=== PATIENT | male | born 1985 | race Caucasian/White ===

== ENCOUNTER 2018-08-21 13:44 | Emergency (ER) | payer OTHER ==
[~2018-08-21] VITALS: Wt 86.0 kg
[2018-08-21] MEDS ORDERED: SOD CHLORIDE 0.9% 1,000 ML IV STA (13:51)
[2018-08-21] MEDS: LORAZEPAM 2 MG INJ IV ONE ×2 (14:00→14:24)
[2018-08-21] MEDS: ONDANSETRON 4 MG INJ IV STA ×2 (14:24→15:53)
[2018-08-21 15:52] VITALS: BP 110/68; PULSE 58; RESP 20
--- NOTE | 2018-08-21 19:28 | ERD ---
ER Documentation Chief Complaint Chief Complaint C/O GEN WEAKNESS WITH NAUSEA THIS MORNING S/P SPINAL CONTRAST YESTERDAY HPI This is a 32-year-old male presents to the emergency department complaining of a sudden onset of dizziness and feeling as though the room was spinning around him that occurred this morning upon awakening. The patient had received an outpatient CT scan with IV contrast of his neck. After receiving the contrast he stated he felt slightly nauseous. He has received contrast in the past with no adverse reactions. The CT scan was ordered by his neurosurgeon as he is currently awaiting spinal surgery for herniated disc. The patient denies any numbness or tingling of his upper or lower extreme days. He has no chest pain. ROS All systems reviewed and are negative except as per history of present illness. Medications Home Meds No Active Prescriptions or Reported Meds Allergies Allergies: Uncoded Allergies: NOVALGIN (PAIN MEDS) (Allergy, Unknown, 08/21/18) PMhx/Soc Medical and Surgical Hx: pt denies Medical Hx, pt denies Surgical Hx Hx Alcohol Use: Yes Hx Substance Use: No Hx Tobacco Use: No Smoking Status: Never smoker Physical Exam Vitals Vital Signs Date Temp Pulse Resp B/P (MAP) Pulse Ox O2 O2 Flow FiO2 Time Delivery Rate 08/21/18 58 20 110/68 99 Room Air 15:52 (82) 08/21/18 98.1 46 20 113/74 99 14:15 (87) Physical Exam Constitutional:Well-developed. Well-nourished. HEENT:Normocephalic. Atraumatic.Pupils were equal round reactive to light. Moist mucous membranes.No tonsillar exudates. Neck: No nuchal rigidity. No lymphadenopathy. No posterior cervical spine tenderness or step-offs. Respiratory: Not using accessory muscles of respiration.Lungs were clear to auscultation bilaterally. No rhonchi. No rales. No wheezing. Cardiovascular: Regular rate regular rhythm.No murmurs. No rubs were appreci ated.S1, S2 normal. Distal pulses are palpable 2+ bilaterally. GI: Abdomen was soft. Nontender. Non Distended. No pulsatile abdominal masses or bruits. No rebound. No guarding. Bowel sounds were present and normal. Muscle skeletal: Full range of motion of both the upper and lower extremities bilaterally.Normal muscle tone.No assymetrical calf tenderness or swelling. Skin: No petechia, no purpura. No lesions on the palms or the soles of the feet. No maculopapular rash. NEURO: Patient was alert, awake, orientated x3.No facial droop. Gait observed and normal with no ataxia.Speech had regular rate and rhythm. No focal neurological deficits. No nystagmus Result Diagram: 08/21/18 1411 08/21/18 1411 Results 24 hrs Laboratory Tests Test 08/21/18 14:11 White Blood Count 6.1 10^3/ul Red Blood Count 4.40 10^6/ul Hemoglobin 13.6 g/dl Hematocrit 38.9 % Mean Corpuscular Volume 88.4 fl Mean Corpuscular Hemoglobin 30.9 pg Mean Corpuscular Hemoglobin Concent 35.0 g/dl Red Cell Distribution Width 11.3 % Platelet Count 222 10^3/UL Mean Platelet Volume 10.4 fl Immature Granulocytes % 0.300 % Neutrophils % 59.5 % Lymphocytes % 29.9 % Monocytes % 8.5 % Eosinophils % 1.3 % Basophils % 0.5 % Nucleated Red Blood Cells % 0.0 /100WBC Immature Granulocytes # 0.020 10^3/ul Neutrophils # 3.7 10^3/ul Lymphocytes # 1.8 10^3/ul Monocytes # 0.5 10^3/ul Eosinophils # 0.1 10^3/ul Basophils # 0.0 10^3/ul Nucleated Red Blood Cells # 0.0 10^3/ul Prothrombin Time 13.4 Sec Prothrombin Time Ratio 1.0 INR International Normalized Ratio 1.01 Activated Partial Thromboplast Time 31.9 Sec Sodium Level 139 mmol/L Potassium Level 4.0 mmol/L Chloride Level 103 mmol/L Carbon Dioxide Level 29 mmol/L Anion Gap 7 Blood Urea Nitrogen 12 mg/dl Creatinine 0.84 mg/dl Est Glomerular Filtrat Rate mL/min > 60 mL/min Glucose Level 92 mg/dl Calcium Level 8.9 mg/dl Total Bilirubin 0.7 mg/dl Direct Bilirubin 0.00 mg/dl Indirect Bilirubin 0.7 mg/dl Aspartate Amino Transf (AST/SGOT) 33 IU/L Alanine Aminotransferase (ALT/SGPT) 30 IU/L Alkaline Phosphatase 52 IU/L Troponin I < 0.012 ng/ml Total Protein 7.4 g/dl Albumin 4.2 g/dl Globulin 3.20 g/dl Albumin/Globulin Ratio 1.31 Amylase Level 82 U/L Lipase 47 U/L Current Medications Medications Dose Sig/Cheryl Start Time Status Last (Trade) Ordered Route PRN Stop Time Admin Dose Reason Admin Sodium 1,000 ml @ Q1H STAT 08/21/18 DC 08/21/18 Chloride 1,000 mls/hr IV 13:51 14:24 08/21/18 14:50 Ondansetron 4 mg ONCE STAT 08/21/18 DC HCl (Zofran IV 13:51 Inj) 08/21/18 13:53 Lorazepam 0.5 mg ONCE ONCE 08/21/18 DC (Ativan) IV 14:00 08/21/18 14:01 Procedures/MDM This is a 32-year-old male that presented to the emergency department for sudden onset of dizziness upon awakening this morning. The patient had no focal neurological deficits on physical exam. Ancillary laboratory work showed no leukocytosis and no severe electrolyte abnormalities. The patient received IV contrast. He stated he had significant improvement of his symptoms. I indicated this is less likely an adverse effect of the contrast and more likely could be a result of mild vertigo. The patient felt comfortable being discharged home and have refused all medications of than IV fluids in the emergency department 12 Lead EKG tracing ordered and reviewed by myself showed: Sinus pericardial 43 bpm and no arrhythmia. WI interval normal. QRS duration normal. No ST segment elevation No ST segment depression. No changes consistent with acute ischemia. The patient was discharged home in fair condition. They were instructed to return to the emergency department at any time if there was any worsening of their condition. The patient stated they would follow up with their PCP in the next 24-48 hours to initiate a suitable medication regimen under the care of their PCP as well as to allow their PCP to monitor any drug reactions. The patient was discharged home with prescriptions after they gave informed consent to the new medication. They were also fully informed by myself on the adverse effects and adverse drug interactions in order to provide adequate safeguards to prevent possible adverse reactions to medications. Departure Diagnosis: Primary Impression: Dizziness Condition: Fair Patient Instructions: Dizziness, Unk Cause TAMMIE MARSHALL MD Aug 21, 2018 19:28
== END 2018-08-21 16:16 | disposition home or self-care (01) ==
LOC: E/R 13:44
DX: R42 Dizziness and giddiness (principal)
CPT/HCPCS: 80053; 82150; 83690; 84484; 85025; 85610; 85730; 93005; 99284; J2060; J2405; J7030